=== PATIENT | female | born 2000 | race Caucasian/White ===

== ENCOUNTER 2023-07-23 12:13 | Emergency (ER) | payer OTHER, SELFPAY ==
[2023-07-23 12:18] VITALS: BP 117/76
--- NOTE | 2023-07-23 13:51 | ED.GENMED ---
History of Present Illness
General
Chief Complaint: Musculo-Skeletal Complaint
Source: patient
Exam Limitations: none
Time Seen by Provider: 07/23/23 13:31
Nursing documentation reviewed up to this point in time: agreed with
Travel History
Have you had any contact with someone who has COVID-19?: No
Do you have any symptoms of coronavirus? Fever > 100 degrees, chills, cough, shortness of breath, sore throat, loss of taste or smell, muscle aches, or headache?: No
History of Present Illness
History of Present Illness:
22-year-old female with no medical problems here with right ankle and foot pain after an inversion injury yesterday while she was moving boxes. Patient says she stepped off the curb and inverted her ankle. She has been able to minimally
weight-bear. There is soft tissue swelling and bruising. She has not had any other injuries and did not take any pain medications
Past History
Past History
ED Past Medical History: None
ED Past Surgical History: None
Social History
Tobacco: Non-smoker
Alcohol: None
Drug: None
Personal: Single
Review of Systems
Review of Systems
Allergies reviewed?: Yes
All Other Systems: Not applicable
Phy Exam
Physical Exam
Physical Exam:
GENERAL: Alert , in no apparent distress, comfortable at rest
HEAD: NCAT
CV: 2+ DP PULSES B/L
NEUROLOGICAL: Alert and oriented, no focal neuro deficits, , 5/5 strength, sensation intact, ambulation slight limp right leg
SKIN: Warm and dry, ecchymosis right dorsal foot
MUSCULOSKELETAL: Moderate STS right ankle with minimal tenderness to malleolus laterally; no pain with inversion and eversion;
no tenderness at the base of the 5th metatarsal, mild midfoot tenderness
no knee/prox tib/fib tenderness, full painless ROM;
PSYCH: Normal and appropriate interaction.
Course
Orders/Labs/Results
Orders:
Orders
07/23/23 12:26
Foot, Right 3 View [CR Foot - Right Min 3 Views] Urgent
Comment:
Reason For Exam: pain after an ankle roll
07/23/23 12:27
Ankle, Right 3 view CR [CR Ankle - Right Min 3 Views *] Urgent
Comment:
Reason For Exam: pain after an ankle roll
Vital Signs
Initial and Last Documented VS:
Initial Vital Signs
Temp Pulse BP Pulse Ox
98.8 F 98 117/76 98
07/23/23 12:18 07/23/23 12:18 07/23/23 12:18 07/23/23 12:18
Last Documented Vital Signs
Temp Pulse BP Pulse Ox
98.8 F 98 117/76 98
07/23/23 12:18 07/23/23 12:18 07/23/23 12:18 07/23/23 12:18
MDM/Problems Addressed
Differential Diagnosis Includes:
Sprain, fracture
MDM/Problems Addressed:
22-year-old female with an inversion injury to her right ankle causing pain and swelling and bruising to the right lateral malleolus and the right midfoot. She is able to minimally weight-bear. On exam she has soft tissue swelling with ecchymosis
and only minimal tenderness to palpation. The joint is stable. X-rays were independently reviewed by me and negative for fracture. This is likely a sprain. Will Clayton wrap, Aircast, crutches as needed for the next several days. NSAIDs, RICE
*Critical Care Note
Total Time (30-74mins, 75-104mins- exclusive of procedures): Not Applicable
ED Attending Note
-
Portions of this chart may have been created with voice recognition software.� Occasional wrong word or��sound alike� substitutions may have occurred due to the inherent limitations of voice recognition software.
Discharge Plan
Departure
Patient Disposition: Home (Routine Discharge)
Date of Disposition: 07/23/23
Time of Disposition: 13:53
Patient with high blood pressure during this ER visit?: No
Condition: Fair
Covid-19: Not Applicable
Discharge Problem:
Right ankle sprain
Instructions: Sprain (DC)
Prescriptions:
No Action
norethindrone-e.estradiol-iron [June FE 1.5/30 (28)] 1.5 mg-30 mcg (21)/75 mg (7) Tablet
tretinoin 0.05 % Cream
1 applic TOPICAL HS
Clindamycin Gel
1 % topical DAILY
hydrocodone-acetaminophen 5-325 mg tablet
1 - 2 tab PO Q4HPRN PRN (Reason: pain) Qty: 20 0RF
ondansetron [ondansetron] 4 mg tablet,disintegrating
4 mg PO Q8HPRN PRN (Reason: nausea) Qty: 5 1RF
Referrals:
Rula Evans CRNP [Family Provider] - Follow up in 2-3 days
Stand Alone Forms: Return to Work
Activity Restrictions/Additional Instructions:
You can wear the Clayton wrap and the Aircast while awake, take them off at night. Take them off during the day several times to ice off-and-on. Take ibuprofen 600 mg 2-3 times a day with food as needed for pain and swelling. You may use the crutches
to assist with weightbearing or do nonweightbearing for a day or 2 and then advance as tolerated. If you are still having symptoms later on next week you can follow-up with orthopedics. There were no signs of fractures on your x-ray and this is
likely a sprain.
Discharge Date and Time
Print Language: KHMER
== END 2023-07-23 14:34 | disposition home or self-care (01) ==
LOC: EMR 12:13
PROVIDERS: EMERGENCY PHYSICIAN Emergency Medicine; FAMILY PHYSICIAN Nurse Practitioner
DX: S93.401A Sprain of unspecified ligament of right ankle, initial encounter (principal); S90.31XA Contusion of right foot, initial encounter; X50.1XXA Overexertion from prolonged static or awkward postures, initial encounter; Y93.89 Activity, other specified
CPT/HCPCS: 99283; 29515; 73610; 73630

== ENCOUNTER → 2024-12-27 10:56 | Outpatient (REF) | payer OTHER, SELFPAY | LOC: OHS 10:56 | PROVIDERS: ATTENDING PHYSICIAN Nurse Practitioner Family | DX: Z23 Encounter for immunization (principal) | CPT/HCPCS: 36415; 86480 ==

== ENCOUNTER 2025-01-17 12:54 | Emergency (ER) | payer OTHER, SELFPAY ==
[2025-01-17 12:56] VITALS: BP 133/84
--- NOTE | 2025-01-17 15:40 | ED.GENMED ---
History of Present Illness
General
Chief Complaint: Allergic Reaction
Source: patient
Exam Limitations: none
Time Seen by Provider: 01/17/25 15:35
Nursing documentation reviewed up to this point in time: agreed with
History of Present Illness
History of Present Illness:
24-year-old female with history of anxiety/depression on Lexapro, Orilissa presents for 'allergic reaction.' States 6 a.m. today noted itchy welts on forearms and hands. Took Benadryl 50 mg 9 a.m. went to work, later felt throat feeling a little
swollen. No known exposures. Rest of the body is unaffected.
Past History
Past History
ED Past Medical History: Psychiatric (anxiety/depression)
ED Past Surgical History: None
Social History
Tobacco: Non-smoker
Alcohol: None
Drug: None
Personal: Single
Living: with roommate
Employment: Employed
Review of Systems
Review of Systems
Allergies reviewed?: Yes
All Other Systems: ROS reviewed and negative except as documented in HPI and ROS
Phy Exam
Physical Exam
Physical Exam:
GENERAL: No acute distress. A&Ox3.
CONSTITUTIONAL: Afebrile.
EYES: clear, conjunctivae normal
ENMT: moist mucus membranes, Pharynx nl
RESPIRATORY: Regular respirations, nonlabored, lungs clear.
CARDIOVASCULAR: Regular rate and rhythm, no murmurs, no rubs.
GI: Soft, nontender, normal BS
MUSCULOSKELETAL: Moves with ease. Well perfused.
SKIN: Warm, dry, pink, few welts are noted on palms of the hands, the back of the hands, both forearms, rest of body is spared
PSYCH: Normal mood and affect. Well kept, interactive and appropriate
NEUROLOGIC: Awake, alert and oriented. No focal neurological deficits
Course
Orders/Labs/Results
Orders:
Orders
01/17/25 15:40
Dexamethasone [Decadron] 10 mg PO NOW STA
Famotidine [Pepcid] 40 mg PO NOW STA
Vital Signs
Initial and Last Documented VS:
Initial Vital Signs
Temp Pulse Resp BP Pulse Ox
98.1 F 86 18 133/84 99
01/17/25 12:56 01/17/25 12:56 01/17/25 12:56 01/17/25 12:56 01/17/25 12:56
Last Documented Vital Signs
Temp Pulse Resp BP Pulse Ox
98.1 F 86 18 133/84 99
01/17/25 12:56 01/17/25 12:56 01/17/25 12:56 01/17/25 12:56 01/17/25 15:53
MDM/Problems Addressed
Differential Diagnosis Includes:
allergic reaction, urticaria, contact dermatitis, erythema multiform
MDM/Problems Addressed:
24-year-old female with history of anxiety/depression on Lexapro, Orilissa presents for 'allergic reaction.' States 6 a.m. today noted itchy welts on forearms and hands. Took Benadryl 50 mg 9 a.m. went to work, later felt throat feeling a little
swollen. No known exposures. Rest of the body is unaffected.
Afebrile, NAD
16:00
No significant allergic reaction.
Stable for discharge.
*Pulse Oximetry
SaO2: 99
Oxygen Mode of Delivery: Room air
Patient hypoxic: no
*Critical Care Note
Total Time (30-74mins, 75-104mins- exclusive of procedures): Not Applicable
ED Attending Note
-
Portions of this chart may have been created with voice recognition software.� Occasional wrong word or��sound alike� substitutions may have occurred due to the inherent limitations of voice recognition software.
Discharge Plan
Departure
Patient Disposition: Home (Routine Discharge)
Date of Disposition: 01/17/25
Time of Disposition: 15:48
Patient with high blood pressure during this ER visit?: No
Condition: Good
Discharge Problem:
Hives of unknown origin
Instructions: Hives (DC)
Prescriptions:
New
prednisone 20 mg tablet
40 mg PO DAILY Qty: 6 0RF
No Action
norethindrone-e.estradiol-iron [Junel FE 1.5/30 (28)] 1.5 mg-30 mcg (21)/75 mg (7) Tablet
tretinoin 0.05 % Cream
1 applic TOPICAL HS
Clindamycin Gel
1 % topical DAILY
hydrocodone-acetaminophen 5-325 mg tablet
1 - 2 tab PO Q4HPRN PRN (Reason: pain) Qty: 20 0RF
ondansetron [ondansetron] 4 mg tablet,disintegrating
4 mg PO Q8HPRN PRN (Reason: nausea) Qty: 5 1RF
Referrals:
Alin Encinas [Other] - As needed
Activity Restrictions/Additional Instructions:
As we discussed, you may continue Benadryl 50 mg every 8 hours as needed for itching, swelling, rash.
I sent a prescription to your pharmacy for prednisone to take 40 mg a day for the next 3 days. Started tomorrow you were given a dose of steroid here today.
You may also take Pepcid, 40 mg twice a day. You can get it [id number].
See your doctor in 3 to 5 days if you are not completely better by then
Interventions
Interventions:
*Risk Screen - Suicide Last Done: 01/17/25 12:56
*General Assessment Last Done: 01/17/25 15:53
*Neglect/Abuse Screening Last Done: 01/17/25 12:56
*ED- Fall Risk Assessment Last Done: 01/17/25 15:53
*Nursing Disposition Last Done: 01/17/25 16:03
ED- Cardiac Assessment Last Done: 01/17/25 15:53
ED- Pulmonary Assessment Last Done: 01/17/25 15:53
ED-Skin Assessment Last Done: 01/17/25 15:53
Discharge Date and Time
Discharge Date/Time: 01/17/25 16:06
Print Language: SAMI
[2025-01-17] MEDS: PEPCID 40 MG PO (15:59)
[2025-01-17] MEDS: DECADRON 10 MG PO (15:59)
== END 2025-01-17 16:06 | disposition home or self-care (01) ==
LOC: EMR 12:54
PROVIDERS: EMERGENCY PHYSICIAN Emergency Medicine; FAMILY PHYSICIAN Family Medicine
DX: L50.9 Urticaria, unspecified (principal); F41.9 Anxiety disorder, unspecified; F32.A Depression, unspecified
CPT/HCPCS: 99283